=== PATIENT | female | born 1935 | race Caucasian/White ===

== ENCOUNTER 2018-10-06 09:04 | Inpatient (IN) ==
[2018-10-06] MEDS ORDERED: ACETAMINOPHEN 325 MG TABLET PO PRN (10:55)
[2018-10-06] MEDS ORDERED: ZALEPLON 5 MG CAPSULE PO PRN (10:55)
[2018-10-06] MEDS ORDERED: MAGNESIUM SULF RIDER 2 GM in PREMIX 1 EACH IV PRN (10:55)
[2018-10-06] MEDS ORDERED: BISACODYL 5 MG TABLET PO PRN (10:55)
[2018-10-06] MEDS ORDERED: guaiFENesin/DM ER 600-30 MG TABLET PO PRN (10:55)
[2018-10-06] MEDS ORDERED: ONDANSETRON 4 MG/2 ML VIAL IV PRN (10:55)
[2018-10-06] MEDS ORDERED: MAGNESIUM SULF RIDER 4 GM in PREMIX 1 EACH IV PRN (10:55)
[2018-10-06] MEDS ORDERED: DOCUSATE SODIUM 100 MG CAPSULE PO PRN (10:55)
[2018-10-06] MEDS ORDERED: SODIUM CHLORIDE 0.45% 1,000 ML IV SCH (11:00)
[2018-10-06 12:02] LABS: Troponin I < 0.015 NG/ML (0.00-0.045)
[2018-10-06] MEDS: ENOXAPARIN 40 MG/0.4 ML SYRINGE SUBCUT SCH (12:08)
[2018-10-06 14:15] LABS: Troponin I < 0.015 NG/ML (0.00-0.045)
[2018-10-06 17:33] LABS: Troponin I < 0.015 NG/ML (0.00-0.045)
[2018-10-06] MEDS: clonazePAM 0.5 MG TABLET PO SCH (20:59)
[2018-10-07 04:37] LABS: Basophils % 0.7 % (0.0-0.8); Eosinophils # 0.1 10*3/uL (0.0-0.87); Hematocrit 36.3 VOL% (35.7-47.0); Hemoglobin 11.8 GM/DL (12.0-16.0); Immature Granulocytes % 0.5 %; Immature Granulocytes Absolute 0.02 #; Lymphocytes # 1.5 10*3/uL (1.4-4.0); Mean Corpuscular HGB Conc 32.5 GM/DL (32-36); Mean Corpuscular Hemoglobin 29 PG (27-34); Mean Corpuscular Volume 88.1 FL (87-102); Mean Platelet Volume 11.4 FL (9.6-12.0); Monocytes # 0.5 10*3/uL (0.11-0.8); Monocytes % 10.6 % (1.7-12.7); Neutrophils # 2.2 10*3/uL (1.4-7.4); Neutrophils % 50.2 % (38.7-73.9); Platelet Count 171 T/CUMM (130-400); Red Blood Count 4.12 MC/CUMM (3.8-5.5); Red Cell Distribution Width 13.2 % (9.3-17.3); White Blood Count 4.3 T/CUMM (4-12)
[2018-10-07 05:04] LABS: Potassium 3.3 MMOL/L (3.5-5.1); Risk Ratio 3.35; VLDL CHOLESTEROL 19.2 MG/DL
[2018-10-07] MEDS: POTASSIUM CHLORIDE 20 MEQ TABLET PO PRN ×3 (06:11→12:05)
[2018-10-07] MEDS: LEVOTHYROXINE 150 MCG TABLET PO SCH (06:11)
[2018-10-07] MEDS: clonazePAM 0.5 MG TABLET PO SCH ×2 (08:14→20:38)
[2018-10-07] MEDS: FEXOFENADINE 180 MG TABLET PO SCH (08:15)
[2018-10-07] MEDS: PANTOPRAZOLE 40 MG TABLET PO SCH (08:15)
[2018-10-07] MEDS: SERTRALINE 100 MG TABLET PO SCH (08:15)
[2018-10-07] MEDS ORDERED: SACCHAROMYCES BOULARDII 250 MG PO SCH (09:00)
[2018-10-08 05:11] LABS: Basophils % 0.5 % (0.0-0.8); Eosinophils # 0.1 10*3/uL (0.0-0.87); Eosinophils % 2.3 % (0.00-10.9); Hematocrit 36.8 VOL% (35.7-47.0); Hemoglobin 11.7 GM/DL (12.0-16.0); Immature Granulocytes % 0.2 %; Immature Granulocytes Absolute 0.01 #; Lymphocytes # 1.5 10*3/uL (1.4-4.0); Lymphocytes % 35.5 % (21.3-54.2); Mean Corpuscular HGB Conc 31.8 GM/DL (32-36); Mean Corpuscular Hemoglobin 28 PG (27-34); Mean Corpuscular Volume 87.6 FL (87-102); Mean Platelet Volume 11.6 FL (9.6-12.0); Monocytes # 0.4 10*3/uL (0.11-0.8); Monocytes % 10.1 % (1.7-12.7); Neutrophils # 2.2 10*3/uL (1.4-7.4); Neutrophils % 51.4 % (38.7-73.9); Platelet Count 179 T/CUMM (130-400); Red Cell Distribution Width 13.2 % (9.3-17.3); White Blood Count 4.3 T/CUMM (4-12)
[2018-10-08 05:20] LABS: Calcium 7.8 MG/DL (8.5-10.1); Potassium 3.7 MMOL/L (3.5-5.1)
[2018-10-08] MEDS: POTASSIUM CHLORIDE 20 MEQ TABLET PO PRN (07:22)
[2018-10-08] MEDS: LEVOTHYROXINE 150 MCG TABLET PO SCH (07:22)
[2018-10-08] MEDS: PANTOPRAZOLE 40 MG TABLET PO SCH (08:42)
[2018-10-08] MEDS: SERTRALINE 100 MG TABLET PO SCH (08:42)
[2018-10-08] MEDS: FEXOFENADINE 180 MG TABLET PO SCH (08:43)
[2018-10-08] MEDS: clonazePAM 0.5 MG TABLET PO SCH (08:43)
[2018-10-08] MEDS: ENOXAPARIN 40 MG/0.4 ML SYRINGE SUBCUT SCH (12:07)
[2018-10-08 17:25] VITALS: BP 158/81
== END 2018-10-08 18:15 | disposition home health service (06) | DRG 309 ==
LOC: N.CC 10:34 → N.TELEN 10-07 14:54
PROVIDERS: ADMIT Internal Medicine Cardiovascular Disease; ATTEND Internal Medicine Cardiovascular Disease